=== PATIENT | female | born 1970 | race Caucasian/White ===

== ENCOUNTER 2017-04-29 04:03 | Emergency (ER) | payer MEDICAID ==
[~2017-04-29] VITALS: Ht 172.7 cm; Wt 104.6 kg
[2017-04-29 04:04] VITALS: BP 124/85
== END 2017-04-29 05:01 | disposition home or self-care (01) ==
LOC: ED 04:30
DX: J02.8 Acute pharyngitis due to other specified organisms (principal)
CPT/HCPCS: 99283

== ENCOUNTER 2017-07-04 10:52 | Inpatient (IN) | payer MEDICAID ==
[~2017-07-04] VITALS: Ht 172.7 cm; Wt 110.0 kg
[~2017-07-04 10:52] MED LIST: NONE at this time
[2017-07-04 11:21] VITALS: BP 124/86
[2017-07-04] MEDS ORDERED: LACTATED RINGERS 1,000 ML IV SCH (11:21)
[2017-07-04] MEDS ORDERED: PNEUMOCOCCAL 23 VACCINE IM-VACC ONE (12:00)
[2017-07-04 12:42] LABS: HCG UR OBC PASS
[2017-07-04] MEDS ORDERED: FENTANYL PF 100 MCG/2ML ONE ×4 (13:23→19:53)
[2017-07-04] MEDS ORDERED: MIDAZOLAM 1 MG/ML, 2ML ONE (13:23)
[2017-07-04] MEDS ORDERED: BUPIVACAINE/PF 0.25% ONE (15:25)
[2017-07-04] MEDS ORDERED: PROPOFOL 10 MG/ML, 20ML ONE (15:28)
[2017-07-04] MEDS ORDERED: CEFAZOLIN 1,000 MG ONE (15:28)
[2017-07-04] MEDS ORDERED: DEXAMETHASONE 4 MG/ML, 5ML ONE (15:28)
[2017-07-04] MEDS ORDERED: KETOROLAC 30 MG/1 ML ONE (15:28)
[2017-07-04] MEDS ORDERED: ONDANSETRON 2MG/ML, 2ML ONE (15:28)
[2017-07-04] MEDS ORDERED: ROCURONIUM 10 MG/ML ONE ×2 (15:28)
[2017-07-04] MEDS ORDERED: THROMBIN 20,000 UNIT VIAL TP ONE (15:38)
[2017-07-04] MEDS ORDERED: PROMETHAZINE 25 MG/ML, 1ML IV PRN (18:00)
[2017-07-04] MEDS ORDERED: ACETAMINOPHEN 325 MG TABLET PO PRN (18:00)
[2017-07-04] MEDS ORDERED: MEPERIDINE/PF 25MG/0.5ML IVPush PRN (18:00)
[2017-07-04] MEDS ORDERED: ONDANSETRON 2MG/ML, 2ML IVPush PRN (18:00)
[2017-07-04] MEDS ORDERED: LABETALOL 5MG/ML, 20ML IV PRN (18:00)
[2017-07-04] MEDS ORDERED: OXYcodone 5 MG/5 ML ORAL.SOL UDC PO PRN (18:00)
[2017-07-04] MEDS ORDERED: OXYcodone 5 MG/5 ML ORAL.SOL UDC ONE (19:09)
[2017-07-04] MEDS ORDERED: ACETAMINOPHEN 650 MG/20.3 ML UDC ONE (19:09)
[2017-07-04] MEDS: FENTANYL PF 100 MCG/2ML IV PRN ×3 (19:25→19:54)
[2017-07-04] MEDS ORDERED: HYDROmorphone PCA 30 MG/30 ML ONE (19:25)
[2017-07-04] MEDS ORDERED: HYDROmorphone PCA 30 MG/30 ML IV PRN (19:30)
[2017-07-04] MEDS ORDERED: HYDROmorphone 1 MG/ML, 1ML ONE (20:33)
[2017-07-04] MEDS: HYDROmorphone 1 MG/ML, 1ML IV PRN ×2 (20:35→20:44)
[2017-07-04 21:08] VITALS: BP 98/61
[2017-07-04] MEDS ORDERED: HYDROcodone/APAP 5/325 TABLET PO PRN (23:30)
[2017-07-04] MEDS ORDERED: ONDANSETRON 2MG/ML, 2ML IV PRN (23:30)
[2017-07-04] MEDS: KETOROLAC 30 MG/1 ML IV SCH (23:39)
[2017-07-05] MEDS: CEFAZOLIN PMX 1GM/50ML 50 ML IVPB SCH ×2 (00:01→07:21)
[2017-07-05] MEDS: D5%-0.45NACL+KCL 20MEQ 1,000 ML IV SCH ×3 (00:01→16:35)
[2017-07-05 00:38] VITALS: BP 110/64
[2017-07-05 05:09] LABS: HEMOGLOBIN 13.1 g/dL (11.7-16.4)
[2017-07-05] MEDS: KETOROLAC 30 MG/1 ML IV SCH ×4 (05:31→22:29)
[2017-07-05 06:13] LABS: BLOOD UREA NITROGEN 13 mg/dL (7-18)
[2017-07-05 07:03] VITALS: BP 104/63
[2017-07-05 13:27] VITALS: BP 107/64
[2017-07-05 19:31] VITALS: BP 120/69
[2017-07-05] MEDS: HYDROmorphone 1 MG/ML, 1ML IV PRN (22:30)
[2017-07-05 23:33] VITALS: BP 90/48
[2017-07-05 23:46] VITALS: BP 98/65
[2017-07-06] MEDS: D5%-0.45NACL+KCL 20MEQ 1,000 ML IV SCH ×4 (01:32→21:33)
[2017-07-06 04:40] VITALS: BP 113/69
[2017-07-06] MEDS: KETOROLAC 30 MG/1 ML IV SCH ×3 (05:01→17:37)
[2017-07-06] MEDS: HYDROmorphone 1 MG/ML, 1ML IV PRN (05:13)
[2017-07-06 06:00] LABS: HEMOGLOBIN 11.2 g/dL (11.7-16.4); WHITE BLOOD COUNT 10.7 x10^3/uL (3.4-10)
[2017-07-06 06:02] LABS: BLOOD UREA NITROGEN 12 mg/dL (7-18)
[2017-07-06 06:06] LABS: ASPARTATE AMINO TRANSFERASE 23 U/L (15-37)
[2017-07-06 07:12] VITALS: BP 106/65
[2017-07-06 14:00] VITALS: BP 104/66
[2017-07-06] MEDS ORDERED: D5%-0.45NACL+KCL 20MEQ 1,000 ML IV SCH (17:00)
[2017-07-06 18:54] VITALS: BP 118/65
[2017-07-06] MEDS ORDERED: HYDROcodone/APAP 5/325 TABLET PO PRN (20:30)
[2017-07-07 02:00] VITALS: BP 118/69
[2017-07-07 05:41] LABS: HEMATOCRIT 37.9 % (34.6-47.8); HEMOGLOBIN 12.4 g/dL (11.7-16.4)
[2017-07-07 06:27] LABS: BLOOD UREA NITROGEN 9 mg/dL (7-18)
[2017-07-07] MEDS: D5%-0.45NACL+KCL 20MEQ 1,000 ML IV SCH (06:39)
[2017-07-07 06:40] VITALS: BP 109/72
[2017-07-07] MEDS: HYDROmorphone 1 MG/ML, 1ML IV PRN (09:26)
[2017-07-07] MEDS ORDERED: HYDR-3240 PO (11:47)
[2017-07-07 12:57] VITALS: BP 122/83
== END 2017-07-07 13:25 | disposition home or self-care (01) | DRG 661 ==
LOC: OUT 10:52 → 4NOR 21:00 → OUT 22:55 → 4NOR 22:55
PROVIDERS: ADMIT Urology; ATTEND Urology
PROC: 0TB00ZZ Excision of Right Kidney, Open Approach (ICD-10-PCS; principal; 2017-07-04 14:00)
DX: N28.1 Cyst of kidney, acquired (principal); M19.90 Unspecified osteoarthritis, unspecified site; N28.89 Other specified disorders of kidney and ureter; Z87.442 Personal history of urinary calculi; Z80.1 Family history of malignant neoplasm of trachea, bronchus and lung; Z80.42 Family history of malignant neoplasm of prostate; Z90.5 Acquired absence of kidney; Z23 Encounter for immunization
CPT/HCPCS: 36415; 71010; 74000; 76998; 80048; 80053; 81025; 82962; 85014; 85018; 85025; 86850; 86900; 86923; 88307; 88331; 88332; 90732; C1729; J0690; J1100; J1170; J1885; J2250; J2405; J2704; J3010; J3490; C1760; J3480; J7120

== ENCOUNTER 2017-07-13 16:25 | Emergency (ER) | payer MEDICAID ==
[~2017-07-13] VITALS: Ht 172.7 cm; Wt 106.9 kg
[~2017-07-13 16:25] MED LIST changes: +HYDR-3240 PO
[2017-07-13] MEDS ORDERED: SODIUM CHLORIDE 0.9% 1,000ML IVBOLUS ONE (17:30)
[2017-07-13] MEDS ORDERED: ONDANSETRON 2MG/ML, 2ML ONE (17:41)
[2017-07-13] MEDS ORDERED: HYDROmorphone 1 MG/ML, 1ML ONE ×3 (17:41→20:52)
[2017-07-13] MEDS: HYDROmorphone 1 MG/ML, 1ML IVPush PRN ×2 (17:45→20:31)
[2017-07-13 17:57] LABS: HEMATOCRIT 36.9 % (34.6-47.8); HEMOGLOBIN 12.1 g/dL (11.7-16.4); WHITE BLOOD COUNT 8.8 x10^3/uL (3.4-10)
[2017-07-13] MEDS ORDERED: SODIUM CHLORIDE 0.9% 1,000 ML IV ONE (18:00)
[2017-07-13] MEDS ORDERED: ONDANSETRON 2MG/ML, 2ML IVPush ONE (18:00)
[2017-07-13 18:03] LABS: ASPARTATE AMINO TRANSFERASE 18 U/L (15-37); BLOOD UREA NITROGEN 15 mg/dL (7-18)
[2017-07-13] MEDS ORDERED: SODIUM CHLORIDE FLUSH 10ML SYR IVF ONE (18:30)
[2017-07-13 20:17] LABS: IS PT STATUS REG ER OR PRE ER? NO
[2017-07-13] MEDS ORDERED: HYDROmorphone 1 MG/ML, 1ML IV ONE (21:00)
[2017-07-13 21:09] VITALS: BP 126/76
== END 2017-07-13 21:24 | disposition home or self-care (01) ==
LOC: SUATTDRO 18:02 → ED 18:40
PROVIDERS: ATTEND Internal Medicine
DX: K91.89 Other postprocedural complications and disorders of digestive system (principal)
CPT/HCPCS: 36415; 71010; 80053; 81001; 83690; 84484; 84703; 85025; 93005; 96361; 96374; 96375; 96376; 99285; J1170; J2405; J7030

== ENCOUNTER → 2017-08-21 | Outpatient (CLI) | payer MEDICAID | END | disposition home or self-care (01) | LOC: CFH 10:51 | PROVIDERS: ATTEND Nurse Practitioner Family | DX: Z12.31 Encounter for screening mammogram for malignant neoplasm of breast (principal) | CPT/HCPCS: G0202 ==

== ENCOUNTER → 2018-08-25 | Outpatient (CLI) | payer MEDICAID | END | disposition home or self-care (01) | LOC: CFH 08:59 | PROVIDERS: ATTEND Family Medicine | DX: Z12.31 Encounter for screening mammogram for malignant neoplasm of breast (principal) | CPT/HCPCS: 77067 ==

== ENCOUNTER 2019-01-24 13:09 | Emergency (ER) | payer MEDICAID ==
[~2019-01-24] VITALS: Ht 172.7 cm; Wt 108.5 kg
[2019-01-24 14:13] LABS: MICROSCOPIC NOT IND
[2019-01-24 14:17] LABS: CULTURE INDICATED? NO
[2019-01-24 14:34] LABS: BASOPHILS # (AUTO) 0.05 x10^3/uL (0-0.1); BASOPHILS % (AUTO) 1 % (0-1); EOSINOPHILS # (AUTO) 0.32 x10^3/uL (0-0.4); EOSINOPHILS % (AUTO) 3 % (1-7); LYMPHOCYTES % (AUTO) 21 % (22-44); MD NO; MEAN CORPUSCULAR HEMOGLOBIN 28.7 pg (27.0-34.8); MEAN CORPUSCULAR HGB CONC 32.5 g/dL (32.4-35.8); MEAN CORPUSCULAR VOLUME 88.2 fL (80-100); MEAN PLATELET VOLUME 8.6 fL (7.4-10.4); MONOCYTES # (AUTO) 0.62 x10^3/uL (0.2-0.8); MONOCYTES % (AUTO) 6 % (2-9); NEUTROPHILS # (AUTO) 6.61 x10^3/uL (1.8-6.8); NEUTROPHILS % (AUTO) 69 % (42-75); PLATELET COUNT 304 x10^3/uL (130-400); RED BLOOD COUNT 5.07 x10^6/uL (3.82-5.3)
[2019-01-24 14:48] LABS: ANION GAP 2 mmol/L (5-15); CHLORIDE 106 mmol/L (98-107)
[2019-01-24 14:50] LABS: CREATININE 0.89 mg/dL (0.55-1.02)
--- NOTE | 2019-01-24 16:13 | NUR ---
PT AMBULATORY TO ROOM 34 W/ C/O L FLANK PAIN AND PAINFUL URINATION X 1 WK. PT RESTING ON NICA. NADN. CÁRDENASS.
--- NOTE | 2019-01-24 17:07 | NUR ---
PT RESTING ON GURNEY. NADN. CÁRDENASS. TO AND FROM CT.
--- NOTE | 2019-01-24 17:13 | NUR ---
REPORT GIVEN TO YANN VU.
[2019-01-24 18:56] VITALS: BP 141/100
== END 2019-01-24 18:58 | disposition home or self-care (01) ==
LOC: ED 16:39
DX: N20.1 Calculus of ureter (principal)
CPT/HCPCS: 36415; 74176; 76770; 80048; 81003; 85025; 99284